=== PATIENT | male | born 2005 | race Caucasian/White ===

== ENCOUNTER 2024-07-27 18:47 | Emergency (ER) | payer OTHER ==
[~2024-07-27] VITALS: Ht 172.7 cm; Wt 76.1 kg
[2024-07-27 20:09] LABS: BASO # 0.1 10^3/uL (0.0-0.2); BASO % 0.5 % (0.0-1.0); EOS # 0.3 10^3/uL (0.0-0.5); EOS % 2.6 % (0.0-3.0); HEMATOCRIT 40.6 % (42.0-52.0); LYMPH # 1.7 10^3/uL (1.5-5.0); LYMPH % 16.2 % (24.0-44.0); MEAN CORPUSCULAR HEMOGLOBIN 30.1 pg (27.0-33.0); MEAN CORPUSCULAR HGB CONC 34.5 g/dl (32.0-36.5); MEAN CORPUSCULAR VOLUME 87.3 fl (80.0-96.0); MONO # 1.1 10^3/uL (0.0-0.8); MONO % 10.4 % (2.0-8.0); NEUTROPHILS # 7.5 10^3/uL (1.5-8.5); PLATELET COUNT, AUTOMATED 214 10^3/uL (150-450); RED BLOOD COUNT 4.65 10^6/uL (4.30-6.10); WHITE BLOOD COUNT 10.7 10^3/uL (4.0-10.0)
[2024-07-27 20:37] LABS: BLOOD UREA NITROGEN 14 MG/DL (9-23); CALCIUM LEVEL 8.8 MG/DL (8.5-10.1); CARBON DIOXIDE LEVEL 29 MMOL/L (20-31); CHLORIDE LEVEL 105 MMOL/L (98-107); CREATININE FOR GFR 1.08 MG/DL (0.70-1.30); GLUCOSE, FASTING 97 MG/DL (60-100); MONO SCRN NEGATIVE (NEGATIVE); POTASSIUM SERUM 4.1 MMOL/L (3.5-5.1); SODIUM LEVEL 141 MMOL/L (136-145)
[2024-07-28] MEDS: METHOCARBAMOL 1,000 MG/10 ML VIAL IM ONE (00:04)
[2024-07-28] MEDS: KETOROLAC 60MG 2ML VIAL IM ONE (00:04)
[2024-07-28] MEDS ORDERED: PENI500T PO (00:19)
[2024-07-28] MEDS: PENICILLIN V POTASSIUM 500 MG TAB PO ONE (00:22)
[2024-07-28 00:44] VITALS: BP 107/50; TEMP 97.1; O2SAT 98
== END 2024-07-28 00:48 | disposition home or self-care (01) ==
LOC: M ED 18:47
DX: J02.0 Streptococcal pharyngitis (principal); Z79.1 Long term (current) use of non-steroidal anti-inflammatories (NSAID)
CPT/HCPCS: 80048; 85025; 86308; 87486; 87581; 87633; 87798; 87880; 96372; 99283; J1885; J2800